=== PATIENT | female | born 1965 | race American Indian/Alaskan Native ===

== ENCOUNTER 2016-08-21 01:09 | Emergency (ER) | payer MEDICARE ==
[2016-08-21 01:38] VITALS: BP 174/116
--- NOTE | 2016-08-21 04:35 | Cat Scan Report ---
FINAL REPORT PROCEDURE: CT HEAD/BRAIN WO CON TECHNIQUE: Computerized tomography of the head was performed without contrast material. HISTORY: headache COMPARISON: No prior studies are available for comparison. FINDINGS: Skull and scalp: Normal. Paranasal sinuses: Normal. Ventricles and subarachnoid spaces: Normal. Cerebrum: No evidence of hemorrhage, acute infarction or mass . Cerebellum and brainstem: No evidence of hemorrhage, acute infarction or mass. Vasculature: Normal. Comments: None. IMPRESSION: There is no evidence of an acute intracranial process
--- NOTE | 2016-08-26 00:42 | ED Elopement Review ---
ED Pt Elopement review - Results review Lab results: Laboratory Tests 08/21/16 03:59 Urine HCG, Qual Negative - Call Back decision Pt Call Back Decision: Pt to F/U with PMD
== END 2016-08-21 04:53 | disposition left against medical advice (07) ==
LOC: ED 01:09
DX: R51 Headache (principal); Z53.21 Procedure and treatment not carried out due to patient leaving prior to being seen by health care provider
CPT/HCPCS: 70450; 81025

== ENCOUNTER 2016-08-21 19:30 | Emergency (ER) | payer MEDICARE ==
[2016-08-21 19:54] VITALS: BP 127/91
--- NOTE | 2016-08-21 20:36 | Emergency Department Report ---
ED General Adult HPI - General Chief complaint: Headache Stated complaint: HEADACHE Time Seen by Provider: 08/21/16 20:13 Source: patient, family, RN notes reviewed, old records reviewed (CT head - nap ) Mode of arrival: Ambulatory Limitations: No Limitations - History of Present Illness Initial comments: PT was brought into the ED last night for headache. PT's sister states that she brought her to the ED yesterday for intermittent headaches x 2-3 days. Pt' s sister reports that when she came home from work Abi young, was just laying around. PT had a headache earlier today and it improved after taking 1 tablespoon apple cider vinegar. PT states the back of her head hurts a "teeny bit" MD Complaint: headache and fatigue Onset/Timin -: Gradual, days(s) Location: head Consistency: intermittent Improves with: other (apple cider vinagar ) Associated Symptoms: headaches, loss of appetite. denies: chest pain, fever/ chills, nausea/vomiting, rash, weakness Treatments Prior to Arrival: none - Related Data Previous Rx's Medication Instructions Recorded Last Taken Type FLUoxetine [Prozac] 20 mg PO QDAY #30 capsule 12/28/13 Unknown Rx Butalb/Acetamin/Caff 50-325-40 1 tab PO Q6HR PRN #12 tab 08/21/16 Unknown Rx [Fioricet] Nitrofurantoin Letcher/M-Cryst 100 mg PO Q12HR #14 capsule 08/21/16 Unknown Rx [Macrobid CAP] Allergies Allergy/AdvReac Type Severity Reaction Status Date / Time No Known Allergies Allergy Verified 12/27/13 23:48 ED Review of Systems ROS: Stated complaint: HEADACHE Other details as noted in HPI Comment: All other systems reviewed and negative Constitutional: denies: chills, fever Eyes: other (hx of gaucoma ) ENT: ear pain (R ear feels clogged ) Respiratory: denies: cough Cardiovascular: denies: chest pain Endocrine: increased urine Gastrointestinal: other (decreased po intake ). denies: abdominal pain, nausea , vomiting Genitourinary: urgency, frequency, other (urine has a strong odor ). denies: dysuria Musculoskeletal: denies: back pain Neurological: headache. denies: abnormal gait ED Past Medical Hx - Past Medical History Hx Pulmonary Embolism: Yes (filter.) Hx Psychiatric Treatment: Yes ([facility] - 1999, unknown diagnosis, unknown diagnosis ) Additional medical history: M.R. - Surgical History Additional Surgical History: hysterectomy, filter, hernia sgx x2. - Social History Smoking Status: Former Smoker Substance Use Type: None - Medications Home Medications: Home Medications Medication Instructions Recorded Confirmed Last Taken Type FLUoxetine [Prozac] 20 mg PO QDAY #30 capsule 12/28/13 Unknown Rx Butalb/Acetamin/Caff 50-325-40 1 tab PO Q6HR PRN #12 tab 08/21/16 Unknown Rx [Fioricet] Nitrofurantoin Letcher/M-Cryst 100 mg PO Q12HR #14 capsule 08/21/16 Unknown Rx [Macrobid CAP] ED Physical Exam - General Limitations: No Limitations General appearance: alert, in no apparent distress - Head Head exam: Present: atraumatic, normocephalic, normal inspection - Eye Eye exam: Present: normal appearance. Absent: conjunctival injection - ENT ENT exam: Present: normal orophraynx, mucous membranes moist, normal external ear exam. Absent: TM's normal bilaterally - Expanded ENT Exam Expanded TM/Canal exam: Cerumen Impaction: Right TM, Left TM Mouth exam: Absent: drooling, trismus, muffled voice, tongue normal Teeth exam: Present: dental caries Throat exam: Positive: normal inspection. Negative: tonsillar erythema, tonsillomegaly, tonsillar exudate - Neck Neck exam: Present: normal inspection, full ROM - Respiratory Respiratory exam: Present: normal lung sounds bilaterally. Absent: respiratory distress, chest wall tenderness - Cardiovascular Cardiovascular Exam: Present: regular rate, normal rhythm, normal heart sounds - GI/Abdominal GI/Abdominal exam: Present: soft, normal bowel sounds. Absent: tenderness - Extremities Exam Extremities exam: Present: normal inspection, full ROM - Back Exam Back exam: Present: normal inspection, full ROM. Absent: tenderness, CVA tenderness (R), CVA tenderness (L), muscle spasm, paraspinal tenderness, vertebral tenderness - Neurological Exam Neurological exam: Present: alert, normal gait - Expanded Neurological Exam Expanded Neurological exam: Present: innattentive Cranial nerves: EOM's Intact: Normal Sensory exam: Upper Extremity Light Touch: Normal, Lower Extremity Light Touch: Normal Best Eye Response (Pardeep): (4) open spontaneously Best Motor Response (Pardeep): (6) obeys commands Best Verbal Response ([place]): (5) oriented Pardeep Total: 15 - Psychiatric Psychiatric exam: Present: normal affect, normal mood - Skin Skin exam: Present: warm, dry, intact ED Course Vital Signs 08/21/16 19:48 Temperature 98.4 F Pulse Rate 74 Respiratory 18 Rate Blood Pressure 127/91 O2 Sat by Pulse 100 Oximetry - Reevaluation(s) Reevaluation #1: 08/21/16 21:56 PT and pt's sister aware of lab results. PT or family member have no questions at this time. verbal instructions given on treatment of cerumen impaction. - Ear Wax Removal Right Ear Ear Canal(s) Curettaged: plastic scoops Results: Re-examined: some cerumen remains TM Visible: TM(s) intact, normal appe Ear Canal: atraumatic Patient Tolerated Procedure: well, no complications Complications: no problems - Pulse Oximetry Interpretation Digit-Finger Initial Pulse Oximetry Readin Actions Taken: none ED Medical Decision Making - Lab Data Result diagrams: 08/21/16 20:35 08/21/16 20:35 Laboratory Last Values WBC 4.7 K/mm3 (4.5-11.0) 08/21/16 20:35 RBC 4.73 M/mm3 (3.65-5.03) 08/21/16 20:35 Hgb 12.8 gm/dl (10.1-14.3) 08/21/16 20:35 Hct 39.2 % (30.3-42.9) 08/21/16 20:35 MCV 83 fl (79-97) 08/21/16 20:35 MCH 27 pg (28-32) L 08/21/16 20:35 MCHC 33 % (30-34) 08/21/16 20:35 RDW 15.1 % (13.2-15.2) 08/21/16 20:35 Plt Count 259 K/mm3 (140-440) 08/21/16 20:35 Lymph % (Auto) 29.3 % (13.4-35.0) 08/21/16 20:35 [place] % (Auto) 8.9 % (0.0-7.3) H 08/21/16 20:35 Eos % (Auto) 1.5 % (0.0-4.3) 08/21/16 20:35 Baso % (Auto) 0.8 % (0.0-1.8) 08/21/16 20:35 Lymph # 1.4 K/mm3 (1.2-5.4) 08/21/16 20:35 [place]cher # 0.4 K/mm3 (0.0-0.8) 08/21/16 20:35 Eos # 0.1 K/mm3 (0.0-0.4) 08/21/16 20:35 Baso # 0.0 K/mm3 (0.0-0.1) 08/21/16 20:35 Seg Neutrophils % 59.5 % (40.0-70.0) 08/21/16 20:35 Seg Neutrophils # 2.8 K/mm3 (1.8-7.7) 08/21/16 20:35 Sodium 141 mmol/L (137-145) 08/21/16 20:35 Potassium 4.0 mmol/L (3.6-5.0) 08/21/16 20:35 Chloride 101.5 mmol/L (98-107) 08/21/16 20:35 Carbon Dioxide 26 mmol/L (22-30) 08/21/16 20:35 Anion Gap 18 mmol/L 08/21/16 20:35 BUN 17 mg/dL (7-17) 08/21/16 20:35 Creatinine 0.6 mg/dL (0.7-1.2) L 08/21/16 20:35 Estimated GFR > 60 ml/min 08/21/16 20:35 BUN/Creatinine Ratio 28.33 % 08/21/16 20:35 Glucose 133 mg/dL (65-100) H 08/21/16 20:35 Calcium 9.5 mg/dL (8.4-10.2) 08/21/16 20:35 Total Bilirubin 0.30 mg/dL (0.1-1.2) 08/21/16 20:35 AST 13 units/L (5-40) 08/21/16 20:35 ALT 10 units/L (7-56) 08/21/16 20:35 Alkaline Phosphatase 41 units/L (35-129) 08/21/16 20:35 Total Protein 7.2 g/dL (6.3-8.2) 08/21/16 20:35 Albumin 4.3 g/dL (3.9-5) 08/21/16 20:35 Albumin/Globulin Ratio 1.5 % 08/21/16 20:35 Urine Color Yellow (Yellow) 08/21/16 20:46 Urine Turbidity Cloudy (Clear) 08/21/16 20:46 Urine pH 5.0 (5.0-7.0) 08/21/16 20:46 Ur Specific [place] 1.018 (1.003-1.030) 08/21/16 20:46 Urine Protein <15 mg/dl mg/dL (Negative) 08/21/16 20:46 Urine Glucose (UA) Neg mg/dL (Negative) 08/21/16 20:46 Urine Ketones Tr mg/dL (Negative) 08/21/16 20:46 Urine Blood Sm (Negative) 08/21/16 20:46 Urine Nitrite Pos (Negative) 08/21/16 20:46 Urine Bilirubin Neg (Negative) 08/21/16 20:46 Urine Urobilinogen < 2.0 mg/dL (<2.0) 08/21/16 20:46 Ur Leukocyte Esterase Mod (Negative) 08/21/16 20:46 Urine WBC (Auto) 20.0 /HPF (0.0-6.0) H 08/21/16 20:46 Urine RBC (Auto) 5.0 /HPF (0.0-6.0) 08/21/16 20:46 U Epithel Cells (Auto) 1.0 /HPF (0-13.0) 08/21/16 20:46 Urine Bacteria (Auto) 2+ /HPF (Negative) 08/21/16 20:46 Urine Mucus 3+ /HPF 08/21/16 20:46 - Differential Diagnosis uti, new onset dm, anemia, cerumen impaction Critical Care Time: No Critical care attestation.: If time is entered above; I have spent that time in minutes in the direct care of this critically ill patient, excluding procedure time. ED Disposition Clinical Impression: Impacted cerumen of both ears, Hyperglycemia UTI (urinary tract infection) Qualifiers: Urinary tract infection type: site unspecified Hematuria presence: with hematuria Qualified Code(s): N39.0 - Urinary tract infection, site not specified Disposition: DC-01 TO HOME OR SELFCARE Is pt being admited?: No Does the pt Need Aspirin: No Condition: Stable Instructions: Urinary Tract Infection in Women (ED), Cerumen Impaction (ED), Acute Headache (ED), Hyperglycemia, Non-Diabetic (ED) Additional Instructions: do not use qtips to clean your ears. you can mix a solution of equal parts hydrogen peroxide and water and put a few drops in each ear follow up with PCP for fasting glucose test and possibly hgbA1c testing Return to the ED if Abi develops fevers, chills, nausea or vomiting. Prescriptions: Butalb/Acetamin/Caff 50-325-40 [Fioricet] 1 tab PO Q6HR PRN #12 tab PRN Reason: Headache Nitrofurantoin Letcher/M-Cryst [Macrobid CAP] 100 mg PO Q12HR #14 capsule Referrals: PRIMARY CARE, [Primary Care Provider] - 3-5 Days EZE ODONNELL MD, PHD [Staff Physician] - 3-5 Days Time of Disposition: 21:58
[2016-08-21 20:59] LABS: Basophils % (Auto) 0.8 % (0.0-1.8); Eosinophils % (Auto) 1.5 % (0.0-4.3); Hematocrit 39.2 % (30.3-42.9); Hemoglobin 12.8 gm/dl (10.1-14.3); Mean Corpuscular HGB Conc 33 % (30-34); Mean Corpuscular Hemoglobin 27 pg (28-32); Mean Corpuscular Volume 83 fl (79-97); Platelet Count 259 K/mm3 (140-440); Red Blood Count 4.73 M/mm3 (3.65-5.03); Red Cell Distribution Width 15.1 % (13.2-15.2); White Blood Count 4.7 K/mm3 (4.5-11.0)
[2016-08-21 21:08] LABS: Alanine Aminotransferase 10 units/L (7-56); Albumin 4.3 g/dL (3.9-5); Albumin/Globulin Ratio 1.5 %; Alkaline Phosphatase 41 units/L (35-129); Anion Gap 18 mmol/L; BUN/Creatinine Ratio 28.33; Blood Urea Nitrogen 17 mg/dL (7-17); Calcium 9.5 mg/dL (8.4-10.2); Carbon Dioxide 26 mmol/L (22-30); Chloride 101.5 mmol/L (98-107); Glucose 133 mg/dL (65-100); Sodium 141 mmol/L (137-145); Total Protein 7.2 g/dL (6.3-8.2)
[2016-08-21 21:45] LABS: Bacteria,Urine 2+ /HPF (Negative); Bilirubin,Urine NEG (Negative); Blood,Urine SM (Negative); Ketones,Urine TR mg/dL (Negative); Leukocyte Esterase,Urine MOD (Negative); Mucus,Urine 3+ /HPF; Nitrite,Urine POS (Negative); Protein,Urine <15 mg/dL mg/dL (Negative); Urobilinogen,Urine < 2.0 mg/dL (<2.0)
== END 2016-08-21 22:00 | disposition home or self-care (01) ==
LOC: ED 19:30
DX: H61.23 Impacted cerumen, bilateral (principal); N39.0 Urinary tract infection, site not specified; R73.9 Hyperglycemia, unspecified; Z87.891 Personal history of nicotine dependence
CPT/HCPCS: 36415; 70450; 80053; 81001; 81025; 85025; 87086